=== PATIENT | female | born 1975 | race American Indian/Alaskan Native ===

== ENCOUNTER 2018-11-10 09:26 | Outpatient (CLI) | payer MEDICAID, OTHER ==
--- NOTE | 2018-11-10 16:00 | Mammography Report ---
BILATERAL DIGITAL SCREENING MAMMOGRAM WITH CAD:11/10/18 CLINICAL: Baseline screening. FINDINGS: The breasts are heterogeneously dense, which may obscure small masses.No mass, architectural distortion or suspicious calcifications. IMPRESSION: No mammographic evidence of malignancy. BI-RADS CATEGORY: 1 -- Negative RECOMMENDATION: Routine mammographic screening in one year. ACR BI-RADS MAMMOGRAPHIC CODES: 0 = Needs additional imaging evaluation; 1 = Negative; 2 = Benign; 3 = Probably benign; 4 = Suspicious; 5 = Malignant; 6 = Known biopsy-proven malignancy COMMENT: 1. Dense breast tissue, i.e., adenosis, fibrocystic changes, etc., may obscure an underlying neoplasm. 2. Approximately 10% of cancers are not detected with mammography. 3. A negative mammography report should not delay biopsy if a clinically suspicious mass is present.
== END 2018-11-10 09:27 | disposition home or self-care (01) ==
LOC: SPVWC 09:26
PROVIDERS: ATTEND Hospitalist
DX: Z12.31 Encounter for screening mammogram for malignant neoplasm of breast (principal)
CPT/HCPCS: 77067

== ENCOUNTER 2019-12-21 06:10 | Day surgery (SDC) | payer OTHER ==
--- NOTE | 2019-12-20 10:42 | Anesthesia Consultation ---
Anesthesia Consult and Med Hx Date of service: 12/21/19 - Airway Anesthetic Teeth Evaluation: Good ROM Head & Neck: Adequate Mental/Hyoid Distance: Adequate Mallampati Class: Class II Intubation Access Assessment: Good - Pre-Operative Health Status ASA Pre-Surgery Classification: ASA1 Proposed Anesthetic Plan: General - Central Nervous System Hx Psychiatric Problems: No - Other Systems Hx Alcohol Use: Yes (Occas) Hx Cancer: No
[2019-12-20 10:48] LABS: Basophils % (Auto) 0.7 % (0.0-1.8); Eosinophils # (Auto) 0.2 K/mm3 (0.0-0.4); Eosinophils % (Auto) 3.6 % (0.0-4.3); Hematocrit 32.9 % (30.3-42.9); Hemoglobin 10.4 gm/dl (10.1-14.3); Lymphocytes # (Auto) 1.8 K/mm3 (1.2-5.4); Lymphocytes % (Auto) 38.2 % (13.4-35.0); Mean Corpuscular HGB Conc 32 % (30-34); Monocytes # (Auto) 0.3 K/mm3 (0.0-0.8); Monocytes % (Auto) 6.7 % (0.0-7.3); Platelet Count 353 K/mm3 (140-440); Red Blood Count 5.05 M/mm3 (3.65-5.03)
[2019-12-20 11:10] LABS: Mean Corpuscular Volume 65 fl (79-97); Red Cell Distribution Width 20.2 % (13.2-15.2)
--- NOTE | 2019-12-20 14:48 | History and Physical Report ---
History of Present Illness Date of examination: 12/20/19 Date of admission: 12/21/2019 Chief complaint: symptomatic uterine fibroids History of present illness: 44y/o with symptomatic uterine fibroids. She reports heavy vaginal bleeding with menses and pain. Pelvic ultrasound demonstrates a marked enlarged fibroid uterus with multiple leiomyomas. The patient has elected to proceed with definitive surgical management. Past History Past Medical History: other (syphilis; uterine fibroids) Past Surgical History: other (tubal ligation) [employer]TE [employer]OR History: fibroids, syphilis Social history: single - Obstetrical History : 6 Para: 5 Hx # Term Pregnancies: 5 Number of Pregnancies: 0 Spontaneous Abortions: 1 Induced : 5 Medications and Allergies Allergies Allergy/AdvReac Type Severity Reaction Status Date / Time No Known Allergies Allergy Unverified 12/13/19 14:36 Home Medications Medication Instructions Recorded Confirmed Last Taken Type No Known Home Medications [No 12/13/19 12/13/19 Unknown History Reported Home Medications] Active Meds: Active Medications Acetaminophen (Tylenol) 1,000 mg PO ONCE NR Stop: 12/21/19 18:00 Celecoxib (Celebrex) 400 mg PO PREOP NR Stop: 12/21/19 18:00 Gabapentin (Gabapentin) 600 mg PO PREOP NR Stop: 12/21/19 18:10 Lactated Ringer's (Lactated Ringers) 1,000 mls @ 125 mls/hr IV DIRECT DENI Stop: 12/21/19 18:00 Magnesium Oxide (Mag-Ox) 400 mg PO ONCE NR Stop: 12/21/19 18:00 Midazolam HCl (Versed) 2 mg IV PREOP NR Stop: 12/21/19 06:01 Review of Systems All systems: negative Genitourinary: vaginal bleeding, pelvic pain - Physical Exam Breasts: Positive: deferred Cardiovascular: Regular rate Lungs: Positive: Clear to auscultation Abdomen: Positive: normal appearance Results Result Diagrams: 12/20/19 10:30 Abnormal lab results 12/20/19 Range/Units 10:30 RBC 5.05 H (3.65-5.03) M/mm3 MCV 65 L (79-97) fl MCH 21 L (28-32) pg RDW 20.2 H (13.2-15.2) % Lymph % (Auto) 38.2 H (13.4-35.0) % All other labs normal. Assessment and Plan - Patient Problems (1) Leiomyoma of body of uterus Status: Acute Plan to address problem: scheduled for a robotic hysterectomy (2) Iron deficiency anemia secondary to blood loss (chronic) Status: Acute (3) Dysfunctional uterine bleeding Status: Acute
[~2019-12-21 06:10] MED LIST: ACETAMINOPHEN 500 MG TAB PO NR; CELECOXIB 200 MG CAP PO NR; GABAPENTIN 300 MG CAP PO NR; LACTATED RINGERS 1,000 ML IV SCH; MAGNESIUM OXIDE 400 MG TAB PO NR; MIDAZOLAM 2 MG/2 ML INJ IV NR; ceFAZolin/Water 2 GM/20 ML 2 GM/20 ML SYRINGE IV NR
--- NOTE | 2019-12-21 07:08 | Anesthesia Day of Surgery ---
Anesthesia Day of Surgery - Day of Surgery Patient Examined: Yes Patient H&P Reviewed: Yes Patient is NPO: Yes
[2019-12-21] MEDS ORDERED: ONDANSETRON 4 MG/2 ML INJ IV PRN (07:09)
[2019-12-21] MEDS ORDERED: dexAMETHasone 20 MG/5 ML VIAL ONE (07:33)
[2019-12-21] MEDS ORDERED: propofoL 200 MG/20 ML VIAL IV ONE (07:33)
[2019-12-21] MEDS ORDERED: SUCCINYLCHOLINE CHLORIDE 200 MG/10 ML INJ MDV ONE (07:33)
[2019-12-21] MEDS ORDERED: ROCURONIUM 50 MG/5 ML INJ IV ONE (07:33)
[2019-12-21] MEDS ORDERED: LIDOCAINE MPF (2%) 20 MG/1 ML VIAL 5 ML ONE (07:33)
[2019-12-21] MEDS ORDERED: NEOMY 40 MG/POLYMYXIN B 200,000 UNITS/ML (GU) AMPULE IR ONE ×2 (07:38→09:46)
[2019-12-21] MEDS ORDERED: BUPIVACAINE/PF (0.5%) 5 MG/1 ML 30 ML VIAL INFILTRATI ONE ×2 (08:32→09:47)
[2019-12-21] MEDS ORDERED: WATER FOR IRRIG STERILE 1,500 ML BOTTLE IR ONE (09:47)
[2019-12-21] MEDS ORDERED: SODIUM CHLORIDE 0.9% IRR 1,500 ML BOTTLE IR ONE (09:47)
[2019-12-21] MEDS ORDERED: SODIUM CHLORIDE 0.9% IRRIG SOLN 2000 ML IR ONE (09:47)
[2019-12-21] MEDS ORDERED: LACTATED RINGERS 1,000 ML ONE (10:47)
--- NOTE | 2019-12-21 11:07 | Operative Report ---
Operative Report Operative Report: Date of surgery: December 21, 2019 Preoperative diagnoses: Symptomatic uterine fibroids; menorrhagia; dysmenorrhea Postoperative diagnoses: Same as above Procedure: Robotic hysterectomy; bilateral salpingectomy Surgeon: Virginia Justice M.D. Geophysical Operator: Tatyana Steiner Anesthesia: Gen. endotracheal anesthesia Estimated blood loss: 150 mL Pathology: Uterus, cervix, bilateral tubes Indication: 44-year-old -0-1-5 with a history of symptomatic uterine fibroids. The patient elected to undergo definitive surgical management. Procedure: The patient was taken to the operating room and given general endotracheal anesthesia without complication. She is prepped and draped in a normal sterile fashion. A bivalve speculum was placed in the patient's vagina and a single- tooth tenaculum placed on the anterior lip of the cervix. The uterus was sounded with the uterine sound. A [employer] uterine manipulator was placed in the bivalve speculum was then removed. Attention was then turned to the patient's abdomen where a millimeter supra umbilical skin incision was then made. A Veress needle was placed and peritoneal entry was verified water-filled syringe. Insufflation of the peritoneal cavity was performed with CO2 gas. The 12 mm trocar was then placed under direct visualization. An additional 8 mm trocar was placed on the patient's left and right lateral side just opposite of the supraumbilical trocar. An additional 5 mm right lateral trocar was then placed as the accessory port. The supraumbilical 12 mm trocar site was closed with the Fabio Moreno device and 0-vicryl suture. The patient was then placed in steep Trendelenburg. The da Savana robot was then engaged. A fenestrated forcep was placed in arm 2 and a vessel sealer was placed in arm 1. General survey revealed a markedly enlarged fibroid uterus with normal tubes and ovaries bilaterally. The surgeon then transferred to the surgical console. The mesosalpinx was then isolated on the right. The vessel sealer was used to coagulate the mesosalpinx which was then transected. The tube was transected from the ovary. The tubo-ovarian ligament was then coagulated and transected. The round ligament was then coagulated and transected also. The vesicouterine peritoneum was then entered from the patient's right side. The uterine vessels were then coagulated with the vessel sealer. The vessels were then transected . Attention was then turned to the patient's left side where the tubo-ovarian ligament and mesosalpinx were again isolated coagulated and transected. The vesical peritoneum was then entered from the left and joined in the midline. Peritoneum was reflected off of the lower uterine segment. Uterine vessels were then coagulated and then transected. The blood supply to the uterus was adequately contained, a posterior colpotomy was made. The V care ring was visualized. Posterior colpotomy was created with the monopolar scissors. The incision was continued circumferentially until anterior colpotomy was made. The cervix and uterus were amputated from the vaginal cuff. The uterus was bivalved in order to facilitate delivery through the vagina. The uterus was then removed along with the tubes bilaterally through the vagina and a warm laparotomy sponge was placed and maintain the pneumoperitoneum. The vaginal cuff was then closed in a running fashion with V lock suture. Irrigation of the pelvis was performed. Hemoblast was applied to the incision. The skin was then reapproximated with 4-0 Monocryl. The tissue was sent to pathology which included the cervix, bilateral tubes and uterus. The patient was then successfully extubated. She was then taken to the recovery room in stable condition. All sponge laps and needle counts were correct x2.
[2019-12-21] MEDS ORDERED: oxyCODONE /ACETAMINOPHEN 5-325MG TAB PO PRN (11:10)
[2019-12-21] MEDS ORDERED: KETOROLAC 30 MG/1 ML INJ ONE (11:16)
[2019-12-21] MEDS ORDERED: BUPIVACAINE-EPINEPHRINE/PF 0.25%-1:200,000 (30 ML) VIAL INFILTRATI ONE (11:55)
[2019-12-21] MEDS ORDERED: IBUPROFEN 600 MG TAB PO SCH (12:00)
[2019-12-21] MEDS: HYDROmorphone 1 MG/1 ML INJ IV PRN ×2 (12:19→12:28)
[2019-12-21] MEDS ORDERED: IBUPROFEN 600 MG TAB PO ONE (16:02)
[2019-12-21 16:37] VITALS: BP 130/85
--- NOTE | 2019-12-21 17:58 | Post Anesthesia Evaluation ---
- Post Anesthesia Evaluation Patient Participated: Yes Airway Patent: Yes Stable Respiratory Function: Yes Nausea/Vomiting: No Temp > 96.8F: Yes Pain Manageable: Yes Adequeate Hydration: Yes Anesthesia Complications: No Block Receding Appropriately: No (For postop and placed in PACU) Patient on Ventilator: No
== END 2019-12-21 19:34 | disposition home or self-care (01) ==
LOC: OR 06:10
PROVIDERS: ATTEND Obstetrics & Gynecology
DX: N94.6 Dysmenorrhea, unspecified (principal); N92.0 Excessive and frequent menstruation with regular cycle; N72 Inflammatory disease of cervix uteri; N83.8 Other noninflammatory disorders of ovary, fallopian tube and broad ligament; D50.0 Iron deficiency anemia secondary to blood loss (chronic); N93.8 Other specified abnormal uterine and vaginal bleeding; D25.9 Leiomyoma of uterus, unspecified; Z98.51 Tubal ligation status; Z72.89 Other problems related to lifestyle
CPT/HCPCS: 36415; 58554; 84703; 85025; 86850; 86900; 86901; 88307; 88342; A4217; J0330; J0690; J1100; J1170; J1885; J2250; J2405; J2704; J7120; S2900

== ENCOUNTER 2020-09-17 08:10 | Outpatient (CLI) | payer OTHER ==
--- NOTE | 2020-09-17 09:45 | Mammography Report ---
BILATERAL DIGITAL DIAGNOSTIC MAMMOGRAM WITH CAD , 09/17/2020 BILATERAL LIMITED BREAST ULTRASOUND CLINICAL INFORMATION / INDICATION: The patient reports one episode of bilateral clear nipple discharg e approximately one month ago. TECHNIQUE: Digital bilateral mammographic imaging was performed. Limited ultrasound was performed. Th is examination was interpreted with the benefit of Computer-Aided Detection (CAD) analysis. COMPARISON: Screening mammogram, 11/10/2018 FINDINGS: Breast Density: The breasts are heterogeneously dense, which may obscure small masses. MAMMOGRAPHIC FINDINGS: No dominant mass, suspicious calcifications, or architectural distortion in ei ther breast. No focal mammographic abnormality is seen to correspond to the patient's report of bilat eral clear nipple discharge ULTRASOUND FINDINGS: Targeted ultrasound evaluation was performed of the area of interest. Sonograp hic evaluation of both retroareolar regions of the right and left breast demonstrate no evidence of s uspicious solid mass or shadowing. There is no visualized ductal ectasia or other abnormality. IMPRESSION: No mammographic or sonographic evidence of malignancy. No focal mammographic or sonograph ic abnormality to account for the patient's reported bilateral clear nipple discharge. Therefore, cli nical correlation is recommended. Follow up recommendation: Clinical exam BI-RADS Category 1: Negative. A "normal" or negative report should not discourage follow up or biopsy of a clinically significant f inding. A written summary of these findings will be mailed to the patient. The patient will be entered into a mammography reporting system which will generate a reminder letter for the patient's next appointmen t at the appropriate interval. According to the [employer], yearly mammograms are recommended starting at age 40 and continuing as long as a woman is in good health. Breast MRI is recommended for women with an carl roximately 20-25% or greater lifetime risk of breast cancer, including women with a strong family his tory of breast or ovarian cancer and women who have been treated for Hodgkin's disease. Signer Name: Paty Brandon MD Signed: 09/17/2020 9:41 AM Workstation Name: [id number]
== END 2020-09-17 08:11 | disposition home or self-care (01) ==
LOC: MAMMO 08:10
PROVIDERS: ATTEND Advanced Practice Midwife
DX: N64.52 Nipple discharge (principal)
CPT/HCPCS: 77066

== ENCOUNTER 2021-09-24 08:47 | Outpatient (CLI) | payer OTHER ==
--- NOTE | 2021-09-24 17:12 | Mammography Report ---
DIGITAL SCREENING MAMMOGRAM WITH CAD, 09/24/2021 CLINICAL INFORMATION / INDICATION: Routine screening mammography. SCREENING TECHNIQUE: Digital bilateral 2D mammography was obtained in the craniocaudal and mediolateral obliqu e projections. This examination was interpreted with the benefit of Computer-Aided Detection analysis . COMPARISON: 11/10/18 and 09/17/20. FINDINGS: Breast Density: The breasts are heterogeneously dense, which may obscure small masses. No dominant mass, suspicious calcifications, or architectural distortion in either breast. IMPRESSION: No mammographic evidence of malignancy. Follow up recommendation: Routine yearly BI-RADS Category 1: NEGATIVE A "normal" or negative report should not discourage follow up or biopsy of a clinically significant f inding. A written summary of these findings will be mailed to the patient. The patient will be entered into a mammography reporting system which will generate a reminder letter for the patient's next appointmen t at the appropriate interval. The [employer] recommends yearly mammograms starting at age 40 and continuing as l micah as a woman is in good health. Breast MRI is recommended for women with an approximate 20-25% or greater lifetime risk of breast cancer, including women with a strong family history of breast or ova yuniel cancer or who have been treated for Hodgkin's disease. Signer Name: Brandon Schuster MD Signed: 09/24/2021 5:07 PM Workstation Name: [id number]
== END 2021-09-24 08:48 | disposition home or self-care (01) ==
LOC: MAMMO 08:47
PROVIDERS: ATTEND Advanced Practice Midwife
DX: Z12.31 Encounter for screening mammogram for malignant neoplasm of breast (principal)
CPT/HCPCS: 77067